=== PATIENT | female | born 1970 | race American Indian/Alaskan Native ===

== ENCOUNTER 2021-10-30 10:49 | Emergency (ER) | payer BC ==
[2021-10-30 11:25] VITALS: BP 163/87
[2021-10-30] MEDS ORDERED: hydrOXYzine PAMOATE 25 MG CAP PO ONE (11:25)
[2021-10-30] MEDS ORDERED: dexAMETHasone 4 MG/ML VIAL IM ONE (11:25)
--- NOTE | 2021-10-30 11:32 | Emergency Department Report ---
- General Chief complaint: Skin Rash Stated complaint: RASH/HANDS/FACE/ARMS Time Seen by Provider: 10/30/21 11:25 Source: patient Mode of arrival: Ambulatory Limitations: No Limitations - History of Present Illness Initial comments: 50-year-old black female presents to the emergency department for evaluation of rash to bilateral hands, face, and neck. She states that she has a history of eczema and rash started out initially like eczema but has progressed. She states that she uses latex gloves at work and it seems like the latex gloves has made even worse. She states that rash is itching but not painful. complaint: rash -: Gradual, days(s) (4-5) Location: face, neck, L hand, R hand Severity scale (0 -10): 0 Associated symptoms: itching Treatments Prior to Arrival: none - Related Data Previous Rx's Medication Instructions Recorded Last Taken Type Prednisone [predniSONE 10 mg 10 mg PO .TAPER #1 pack 10/30/21 Unknown Rx (6-Day Pack, 21 Tabs)] hydrOXYzine PAMOATE [Vistaril] 25 mg PO Q6HR PRN #30 capsule 10/30/21 Unknown Rx Allergies Allergy/AdvReac Type Severity Reaction Status Date / Time No Known Allergies Allergy Verified 10/30/21 11:25 Abscess Boil HPI - HPI Chief Complaint: Skin Rash Stated Complaint: RASH/HANDS/FACE/ARMS Time Seen by Provider: 10/30/21 11:25 Home Medications: Previous Rx's Medication Instructions Recorded Last Taken Type Prednisone [predniSONE 10 mg 10 mg PO .TAPER #1 pack 10/30/21 Unknown Rx (6-Day Pack, 21 Tabs)] hydrOXYzine PAMOATE [Vistaril] 25 mg PO Q6HR PRN #30 capsule 10/30/21 Unknown Rx Allergies/Adverse Reactions: Allergies Allergy/AdvReac Type Severity Reaction Status Date / Time No Known Allergies Allergy Verified 10/30/21 11:25 ED Review of Systems ROS: Stated complaint: RASH/HANDS/FACE/ARMS Other details as noted in HPI Comment: All other systems reviewed and negative Constitutional: denies: chills, fever Respiratory: denies: shortness of breath Cardiovascular: denies: chest pain, palpitations Gastrointestinal: denies: abdominal pain, nausea, vomiting Musculoskeletal: denies: back pain Skin: rash, pruritus Neurological: denies: headache, weakness ED Past Medical Hx - Medications Home Medications: Home Medications Medication Instructions Recorded Confirmed Last Taken Type Prednisone [predniSONE 10 mg 10 mg PO .TAPER #1 pack 10/30/21 Unknown Rx (6-Day Pack, 21 Tabs)] hydrOXYzine PAMOATE [Vistaril] 25 mg PO Q6HR PRN #30 capsule 10/30/21 Unknown Rx ED Physical Exam - General Limitations: No Limitations General appearance: alert, in no apparent distress - Head Head exam: Present: atraumatic, normocephalic - Eye Eye exam: Present: normal appearance. Absent: conjunctival injection - Neck Neck exam: Absent: normal inspection (Dry scaly pruritic rash noted to neck), tenderness - Respiratory Respiratory exam: Absent: respiratory distress - Cardiovascular Cardiovascular Exam: Present: regular rate - GI/Abdominal GI/Abdominal exam: Absent: soft, distended, tenderness - Extremities Exam Extremities exam: Present: normal capillary refill - Back Exam Back exam: Present: normal inspection. Absent: CVA tenderness (R), CVA tenderness (L) - Neurological Exam Neurological exam: Present: alert, oriented X3 - Psychiatric Psychiatric exam: Present: normal affect, normal mood - Skin Skin exam: Present: warm, dry, normal color, rash - Expanded Skin Exam Expanded Distribution of rash: face, neck, RUE, LUE Description of rash: Present: other (Scaly pruritic) ED Course Vital Signs 10/30/21 11:20 Temperature 99.1 F Pulse Rate 87 Respiratory 18 Rate Blood Pressure 163/87 [Right] O2 Sat by Pulse 100 Oximetry ED Medical Decision Making - Medical Decision Making 50-year-old black female presents to the emergency department for evaluation of rash to bilateral hands, face, and neck. She states that she has a history of eczema and rash started out initially like eczema but has progressed. She states that she uses latex gloves at work and it seems like the latex gloves has made even worse. She states that rash is itching but not painful. Rash consistent with eczema rash. Patient will be treated with 6-day course of steroids along with Vistaril to use as needed for itching. She is advised to follow-up with dermatology for further evaluation and management and return to the emergency department as needed. She verbalizes understanding of and agreement with plan of care. Critical care attestation.: If time is entered above; I have spent that time in minutes in the direct care of this critically ill patient, excluding procedure time. ED Disposition Clinical Impression: Rash Atopic dermatitis Qualifiers: Atopic dermatitis type: unspecified Qualified Code(s): L20.9 - Atopic dermatitis, unspecified Disposition: 01 HOME / SELF CARE / HOMELESS Is pt being admited?: No Does the pt Need Aspirin: No Condition: Stable Instructions: Atopic Dermatitis, Rash, Adult, [id number] Additional Instructions: Take medications as prescribed. Follow-up with your primary care provider if no improvement or worsening symptoms. Follow-up with dermatology for further evaluation and management. Return to the emergency department as needed. Prescriptions: Prednisone [predniSONE 10 mg (6-Day Pack, 21 Tabs)] 10 mg PO .TAPER #1 pack hydrOXYzine PAMOATE [Vistaril] 25 mg PO Q6HR PRN #30 capsule PRN Reason: Itching Referrals: MARVIN PARMAR MD [Staff Physician] - 3-5 Days Forms: Work/School Release Form(ED) Time of Disposition: 11:32
== END 2021-10-30 12:09 | disposition home or self-care (01) ==
LOC: ED 10:49
DX: L20.9 Atopic dermatitis, unspecified (principal); Z79.899 Other long term (current) drug therapy
CPT/HCPCS: 96372; 99282; J1100